=== PATIENT | male | born 2000 | race Caucasian/White ===

== ENCOUNTER 2018-11-30 14:51 | Emergency (ER) | payer SELFPAY ==
[~2018-11-30] VITALS: Ht 165.1 cm; Wt 54.4 kg
[2018-11-30] MEDS ORDERED: ALBUTEROL2.5 MG/3 M INH (15:02)
[2018-11-30 15:05] VITALS: BP 125/72
--- NOTE | 2018-11-30 15:09 | NUR ---
ED Nurse Note: Patient presents to ER due tightness in the chest, SOB since 0200 today. Patient used inhaler x 2 today. Reports no flu-like symptoms. Patient able speak full sentence without dyspnea or SOB. Placed patient in bed.
--- NOTE | 2018-11-30 15:33 | Emergency Room Report ---
History of Present Illness General Chief Complaint: Asthma Source: Patient Present Illness HPI 18-year-old male presents to the emergency department complaining of 5 out of 10 in severity anterior tightness in the chest since 2 AM this morning. Patient states that he woke up feeling short of breath. Patient reports history of asthma when he was younger and states that it was exertional. Patient denies having an inhaler or being treated for bronchitis in the recent years. Patient denies smoking tobacco but he does state that he smokes a vape pen. Denies drug use or alcohol use. Patient denies history of anxiety but states he has been somewhat stress lately. Patient denies fevers or chills denies cough, wheezing, mucus production, recent travel or immobilization. Patient denies palpitations and patient is here with his father whom also endorses that both his father and mother have multiple cardiac issues and have had MIs at young ages specifically 50 years of age. Denies chest pain and denies claudication. Allergies: Coded Allergies: AMOXICILLIN (Verified Allergy, Unknown, 11/30/18) PENICILLINS (Verified Allergy, Unknown, 11/30/18) Patient History Past Medical History: see triage record, asthma, other - lupus Past Surgical History: none Pertinent Family History: none Social History: Reports: smoking Reviewed Nursing Documentation: PMH: Agreed; PSxH: Agreed Nursing Documentation-PMH Past Medical History: No History, Except For Hx Asthma: Yes Review of Systems All Other Systems: negative except mentioned in HPI Physical Exam Vital Signs Date Time Temp Pulse Resp B/P (MAP) Pulse Ox O2 Delivery O2 Flow Rate FiO2 11/30/18 14:59 98.8 93 16 122/71 95 Room Air Sp02 EP Interpretation: reviewed, normal General Appearance: no apparent distress, alert, GCS 15, non-toxic Head: normocephalic, atraumatic Eyes: bilateral eye normal inspection, bilateral eye PERRL ENT: hearing grossly normal, normal voice Neck: full range of motion Respiratory: chest non-tender, lungs clear, normal breath sounds, no respiratory distress, no accessory muscle use, no wheezing, respiratory distress , speaking full sentences Cardiovascular #1: regular rate, rhythm Musculoskeletal: back normal, gait/station normal, normal range of motion, non- tender Neurologic: alert, oriented x3, responsive, motor strength/tone normal, sensory intact, speech normal, grossly normal Psychiatric: judgement/insight normal Skin: normal color, no rash, warm/dry, well hydrated Lymphatic: no adenopathy Medical Decision Making PA Attestation Dr. oliveros is my supervising Physician whom patient management has been discussed with. Diagnostic Impression: Primary Impression: SOB (shortness of breath) ER Course 18-year-old male presents to the emergency department complaining of 5 out of 10 in severity anterior tightness in the chest since 2 AM this morning. Patient states that he woke up feeling short of breath. Patient reports history of asthma when he was younger and states that it was exertional. Patient denies having an inhaler or being treated for bronchitis in the recent years. Patient denies smoking tobacco but he does state that he smokes a vape pen. Denies drug use or alcohol use. Patient denies history of anxiety but states he has been somewhat stress lately. Patient denies fevers or chills denies cough, wheezing, mucus production, recent travel or immobilization. Patient denies palpitations and patient is here with his father whom also endorses that both his father and mother have multiple cardiac issues and have had MIs at young ages specifically 50 years of age. Denies chest pain and denies claudication. Ddx considered but are not limited to asthma, anxiety, DE, PE, PNA Vital signs: are WNL, pt. is afebrile H&PE are most consistent with SOB in pt. with a PE that is not consistent with asthma exacerbation.. no wheezes ORDERS: -cxr -ekg -troponin: WNL -d-dimer: WNL -CBC/CMP: WNL ED INTERVENTIONS: -Ativan po - DISCHARGE: At this time pt. is stable for d/c to home. Will provide printed patient care instructions, and any necessary prescriptions. Care plan and follow up instructions have been discussed with the patient prior to discharge. Labs Test 11/30/18 15:50 D-Dimer 0.19 mg/L FEU (0.00-0.49) Sodium Level 140 MMOL/L (136-145) Potassium Level 3.9 MMOL/L (3.5-5.1) Chloride Level 101 MMOL/L (98-107) Carbon Dioxide Level 27 MMOL/L (21-32) Anion Gap 13 mmol/L (5-15) Blood Urea Nitrogen 18 mg/dL (7-18) Creatinine 1.1 MG/DL (0.55-1.30) Estimat Glomerular Filtration Rate > 60 mL/min (>60) Glucose Level 88 MG/DL (74-106) Calcium Level 9.2 MG/DL (8.5-10.1) Total Creatine Kinase 95 U/L (26-308) Troponin I 0.000 ng/mL (0.000-0.056) EKG Diagnostic Results EP Interpretation: Dr. Sol Rate: normal - 95 Rhythm: NSR ST Segments: no acute changes ASA given to the pt in ED: No PA Scribe Text This Interpretation was scribed by CARMELITA Tang. Chest X-Ray Diagnostic Results Chest X-Ray Diagnostic Results : Chest X-Ray Ordered: Yes # of Views/Limited/Complete: 1 View Indication: Shortness of Breath EP Interpretation: Yes CARMELITA Xray: Interpretation reviewed, by supervising MD, and agrees with findings. Interpretation: no consolidation, no effusion, no pneumothorax, no acute cardiopulmonary disease Impression: No acute disease Electronically Signed by: Ashley Tang PA-C Last Vital Signs Date Time Temp Pulse Resp B/P (MAP) Pulse Ox O2 Delivery O2 Flow Rate FiO2 11/30/18 15:05 98.8 83 16 125/72 95 Room Air Status: improved Disposition: HOME, SELF-CARE Condition: Stable Scripts Albuterol Sulfate* (ALBUTEROL SULFATE MDI*) 8.5 Gm Hfa.aer.ad 2 PUFF INH Q4H, #1 INH 0 Refills Prov: Ashley Tang 11/30/18 Ranitidine Hcl* (ZANTAC*) 150 Mg Tablet 150 MG ORAL TWICE A DAY for 7 Days, #14 TAB Prov: Ashley Tang 11/30/18 Patient Instructions: Shortness of Breath, [id number] Additional Instructions: Take medications as directed. Follow up with a Primary Care Provider in 3-5 days, even if your symptoms have resolved. --Please review list of primary care clinics, if you do not already have a primary care provider Return sooner to ED if new symptoms occur, or current symptoms become worse. - Please note that this Emergency Department Report was dictated using [employer] transcriber technology software, occasionally this can lead to erroneous entry secondary to interpretation by the dictation equipment. Ashley Tang Nov 30, 2018 15:33
--- NOTE | 2018-11-30 15:45 | Diagnostic Imaging Report ---
Indication: Chest pain Technique: One view of the chest Comparison: none Findings: Lungs and pleural spaces are clear. Heart size is normal Impression: No acute process
[2018-11-30] MEDS ORDERED: LORazepam 1mg tab ORAL ONE (16:30)
[2018-11-30 16:34] LABS: ANION GAP 13 mmol/L (5-15); BLOOD UREA NITROGEN 18 mg/dL (7-18); CALCIUM 9.2 MG/DL (8.5-10.1); CARBON DIOXIDE 27 MMOL/L (21-32); CHLORIDE 101 MMOL/L (98-107); CREATININE 1.1 MG/DL (0.55-1.30); POTASSIUM 3.9 MMOL/L (3.5-5.1); SODIUM 140 MMOL/L (136-145)
[2018-11-30 16:39] LABS: CREATINE KINASE 95 U/L (26-308)
[2018-11-30] MEDS ORDERED: ALBUTEROL SULF8.5 GM INH (17:45)
[2018-11-30] MEDS ORDERED: ZANTAC150 MG ORAL (17:45)
[2018-11-30 17:50] VITALS: BP 132/72
--- NOTE | 2018-11-30 17:50 | NUR ---
ER DISCHARGE NOTE: Patient is cleared to be discharged per ERMD, pt is aox4, on room air, with stable vital signs. pt was given dc and prescription instructions, pt was able to verbalize understanding, pt id band removed without complications. pt is able to ambulate with steady gait. pt took all belongings.
--- NOTE | 2018-12-04 19:14 | Cardiology Report ---
APPROVED REPORT EKG Measurement Heart [id number] Sinus rhythm with marked sinus arrhythmia Right atrial enlargement Borderline ECG
== END 2018-11-30 17:50 | disposition home or self-care (01) ==
LOC: EMR 15:32
DX: R06.02 Shortness of breath (principal); Z88.0 Allergy status to penicillin; Z88.1 Allergy status to other antibiotic agents; J45.909 Unspecified asthma, uncomplicated; F17.200 Nicotine dependence, unspecified, uncomplicated
CPT/HCPCS: 36415; 71045; 80048; 82550; 84484; 85379; 93005; 99283